=== PATIENT | female | born 1955 | race Caucasian/White ===

== ENCOUNTER 2023-03-02 04:35 | Day surgery (SDC) | payer OTHER, BC ==
[2023-02-28 16:22] VITALS: BMI 28.7
[2023-03-02 09:36] VITALS: BP 119/78; TEMP 98
[2023-03-02 12:19] VITALS: PULSE 69; RESP 16
== END 2023-03-02 12:00 | disposition home or self-care (01) ==
LOC: JASU-ENDO 04:35
PROVIDERS: ATTEND Internal Medicine Gastroenterology
PROC: 0DJD8ZZ Inspection of Lower Intestinal Tract, Via Natural or Artificial Opening Endoscopic (ICD-10-PCS; principal; 2023-03-02 10:30)
DX: Z12.11 Encounter for screening for malignant neoplasm of colon (principal); K57.30 Diverticulosis of large intestine without perforation or abscess without bleeding; Z86.010 Personal history of colon polyps